=== PATIENT | male | born 1965 | race Caucasian/White ===

== ENCOUNTER → 2022-05-16 | Outpatient (REF) | payer OTHER ==
[2022-05-16 14:00] LABS: LYMPHOCYTES 2 % (16-44); NEUTROPHILS 97 % (28-66)
[2022-05-16 14:01] LABS: PLATELET ESTIMATE NORMAL (NORMAL)
[2022-05-17 23:10] LABS: TESTOSTERONE FREE (DIRECT) 13.6 pg/mL (7.2-24.0)
== END ==
LOC: M LAB REF 13:17
PROVIDERS: ATTEND Internal Medicine
DX: D72.9 Disorder of white blood cells, unspecified (principal); N52.9 Male erectile dysfunction, unspecified; D72.829 Elevated white blood cell count, unspecified

== ENCOUNTER → 2023-08-14 | Outpatient (CLI) | payer OTHER | LOC: M WUC 09:26 | PROVIDERS: ATTEND Internal Medicine | DX: Z00.00 Encounter for general adult medical examination without abnormal findings (principal) ==

== ENCOUNTER 2024-02-26 10:35 | Observation (INO) | payer OTHER ==
[~2024-02-26] VITALS: Ht 177.8 cm; Wt 108.2 kg
[2024-02-26] MEDS ORDERED: LOSA100T46 PO (10:46)
[2024-02-26] MEDS ORDERED: PRAV20TA2 PO (10:46)
[2024-02-26] MEDS ORDERED: PHEN30CA21 PO (10:46)
[2024-02-26] MEDS ORDERED: CHLO125TA PO (10:46)
[2024-02-26] MEDS ORDERED: ISOVUE-370 76% 100ML VIAL As Ordered ONE (12:12)
[2024-02-26] MEDS: KETOROLAC 30 MG/ML 1ML VIAL IV ONE (14:18)
[2024-02-26] MEDS: ONDANSETRON 4MG 2ML VIAL IV ONE (14:18)
[2024-02-26] MEDS: NS 1,000 ML IV ONE (14:18)
[2024-02-26] MEDS ORDERED: HOME MED LIST COMPLETE! XX SCH (15:05)
[2024-02-26] MEDS ORDERED: ACETAMINOPHEN TAB 650MG DOSE (2X325MG) PO PRN (15:35)
[2024-02-26] MEDS ORDERED: ONDANSETRON 4MG 2ML VIAL IV PRN (15:40)
[2024-02-26] MEDS: PANTOPRAZOLE 40MG VIAL IV ONE (16:21)
[2024-02-26 17:15] VITALS: BP 147/85; TEMP 98.1; O2SAT 98
[2024-02-26] MEDS: KCL 40MEQ IN D5/NS 1000ML 1,000 ML IV SCH (18:42)
[2024-02-26 22:08] VITALS: BP 119/81; TEMP 97.9; O2SAT 96
[2024-02-27 05:40] VITALS: BP 127/83; TEMP 97.5; O2SAT 98
[2024-02-27 06:23] LABS: HEMATOCRIT 44.5 % (42.0-52.0); HEMOGLOBIN 15.8 g/dl (13.5-17.5); MEAN CORPUSCULAR HEMOGLOBIN 33.2 pg (27.0-33.0); MEAN CORPUSCULAR HGB CONC 35.5 g/dl (32.0-36.5); MEAN CORPUSCULAR VOLUME 93.5 fl (80.0-96.0); PLATELET COUNT, AUTOMATED 268 10^3/uL (150-450); RED BLOOD COUNT 4.76 10^6/uL (4.30-6.10)
[2024-02-27 06:34] LABS: ALKALINE PHOSPHATASE 67 U/L (46-116); ALT/SGPT 25 U/L (7.0-40); AST/SGOT 21 U/L (<34); BILIRUBIN,TOTAL 0.7 MG/DL (0.3-1.2); BLOOD UREA NITROGEN 14 MG/DL (9-23); CARBON DIOXIDE LEVEL 32 MMOL/L (20-31); CHLORIDE LEVEL 100 MMOL/L (98-107); CREATININE FOR GFR 0.88 MG/DL (0.70-1.30); GLOMERULAR FILTRATION RATE > 60.0 (>49); GLUCOSE, FASTING 103 MG/DL (74-106); POTASSIUM SERUM 3.5 MMOL/L (3.5-5.1); SODIUM LEVEL 138 MMOL/L (136-145); TOTAL PROTEIN 5.9 G/DL (5.7-8.2)
[2024-02-27 09:47] LABS: MAGNESIUM LEVEL 1.9 MG/DL (1.8-2.4)
[2024-02-27] MEDS: POTASSIUM CHLORIDE 10MEQ SR TABLET PO SCH (10:14)
[2024-02-27] MEDS ORDERED: CEFD300CAP PO (12:06)
[2024-02-27] MEDS ORDERED: METR-265 PO (12:06)
[2024-02-27] MEDS ORDERED: POTA10CA60 PO (12:06)
== END 2024-02-27 14:49 | disposition home or self-care (01) ==
LOC: M ED 10:35 → M ED INP 10:36 → M MSPAV 17:15
PROVIDERS: ADMIT Hospitalist; ATTEND Hospitalist
DX: R10.9 Unspecified abdominal pain (principal); R14.0 Abdominal distension (gaseous); R11.2 Nausea with vomiting, unspecified; R19.7 Diarrhea, unspecified; R93.3 Abnormal findings on diagnostic imaging of other parts of digestive tract; K76.0 Fatty (change of) liver, not elsewhere classified; K57.90 Diverticulosis of intestine, part unspecified, without perforation or abscess without bleeding; I10 Essential (primary) hypertension; E78.5 Hyperlipidemia, unspecified; E66.9 Obesity, unspecified; Z79.899 Other long term (current) drug therapy
CPT/HCPCS: 36415; 74018; 74177; 80053; 83605; 83735; 85027; 96374; 96375; 99284; C9113; J1885; J2405; Q9967

== ENCOUNTER → 2024-02-26 | Outpatient (CLI) | payer OTHER ==
[~2024-02-26] MED LIST: CEFD300CAP PO; CHLO125TA PO; LOSA100T46 PO; METR-265 PO; PHEN30CA21 PO; POTA10CA60 PO; PRAV20TA2 PO
[2024-02-26 11:05] LABS: BASO # 0.1 10^3/uL (0.0-0.2); BASO % 0.6 % (0.0-1.0); EOS # 0.1 10^3/uL (0.0-0.5); HEMATOCRIT 50.4 % (42.0-52.0); HEMOGLOBIN 17.7 g/dl (13.5-17.5); LYMPH % 22.7 % (24.0-44.0); MEAN CORPUSCULAR HGB CONC 35.1 g/dl (32.0-36.5); MEAN CORPUSCULAR VOLUME 93.9 fl (80.0-96.0); MONO # 2.1 10^3/uL (0.0-0.8); MONO % 15.6 % (2.0-8.0); NEUTROPHILS # 7.9 10^3/uL (1.5-8.5); NEUTROPHILS % 59.7 % (36.0-66.0); PLATELET COUNT, AUTOMATED 313 10^3/uL (150-450); RED BLOOD COUNT 5.37 10^6/uL (4.30-6.10); WHITE BLOOD COUNT 13.2 10^3/uL (4.0-10.0)
[2024-02-26 11:39] LABS: LIPASE 34 U/L (12-53)
[2024-02-26 11:41] LABS: ALBUMIN 3.6 G/DL (3.2-5.2); ALKALINE PHOSPHATASE 82 U/L (46-116); ALT/SGPT 31 U/L (7.0-40); AMYLASE 83 U/L (30-118); AST/SGOT 21 U/L (<34); BILIRUBIN,TOTAL 0.5 MG/DL (0.3-1.2); BLOOD UREA NITROGEN 21 MG/DL (9-23); CALCIUM LEVEL 9.3 MG/DL (8.3-10.6); CARBON DIOXIDE LEVEL 33 MMOL/L (20-31); CHLORIDE LEVEL 94 MMOL/L (98-107); CREATININE FOR GFR 0.93 MG/DL (0.70-1.30); GLOMERULAR FILTRATION RATE > 60.0 (>49); GLUCOSE, FASTING 92 MG/DL (74-106); POTASSIUM SERUM 3.1 MMOL/L (3.5-5.1); SODIUM LEVEL 135 MMOL/L (136-145); TOTAL PROTEIN 7.1 G/DL (5.7-8.2)
== END ==
LOC: M WUC 08:59
PROVIDERS: ATTEND Physician Assistant
DX: R11.0 Nausea (principal)

== ENCOUNTER 2024-11-24 06:58 | Day surgery (SDC) | payer OTHER ==
[~2024-11-24] VITALS: Ht 177.8 cm; Wt 111.6 kg
[~2024-11-24 06:58] MED LIST changes: +CO Q10CA PO; +MULTTAB61 PO; -POTA10CA60 PO; +POTA10CA70 PO; +PRO1CAP PO; +VITACAP31; +[UNRECOGNIZED DRUG - OTHER]; +propofoL 200 MG/20 ML VIAL As Ordered ONE
[2024-11-24] MEDS ORDERED: propofoL 500 MG/50 ML VIAL As Ordered ONE (07:13)
[2024-11-24 08:00] VITALS: BP 144/85; O2SAT 96
== END 2024-11-24 08:30 | disposition home or self-care (01) ==
LOC: M OPP 06:58
PROVIDERS: ATTEND Internal Medicine Gastroenterology
DX: Z12.11 Encounter for screening for malignant neoplasm of colon (principal); K63.5 Polyp of colon; K64.0 First degree hemorrhoids; K57.30 Diverticulosis of large intestine without perforation or abscess without bleeding; I10 Essential (primary) hypertension; E78.00 Pure hypercholesterolemia, unspecified; M19.90 Unspecified osteoarthritis, unspecified site; Z79.899 Other long term (current) drug therapy

== ENCOUNTER → 2025-03-24 | Outpatient (CLI) | payer OTHER ==
[~2025-03-24] MED LIST changes: +ISOVUE-300 61% 100ML VIAL As Ordered ONE; +LIDOCAINE 1% MDV 20ML VIAL As Ordered ONE; +PROHANCE 279.3MG/ML 5ML VIAL As Ordered ONE; -propofoL 200 MG/20 ML VIAL As Ordered ONE
== END ==
LOC: M RAD 12:21
PROVIDERS: ATTEND Physician Assistant
DX: M19.012 Primary osteoarthritis, left shoulder (principal); S43.432A Superior glenoid labrum lesion of left shoulder, initial encounter; X58.XXXA Exposure to other specified factors, initial encounter; Y92.9 Unspecified place or not applicable
CPT/HCPCS: 23350; 73223; 77002; A9576; Q9967

== ENCOUNTER → 2025-09-04 | Outpatient (REF) | payer OTHER ==
[~2025-09-04] MED LIST changes: -ISOVUE-300 61% 100ML VIAL As Ordered ONE; -LIDOCAINE 1% MDV 20ML VIAL As Ordered ONE; -PRAV20TA2 PO; +PRAV20TA78 PO; -PROHANCE 279.3MG/ML 5ML VIAL As Ordered ONE
== END ==
LOC: M LAB REF 14:18
PROVIDERS: ATTEND Internal Medicine
DX: R63.5 Abnormal weight gain (principal)

== ENCOUNTER → 2025-10-06 | Outpatient (CLI) | payer OTHER | LOC: M RAD 06:32 | PROVIDERS: ATTEND Internal Medicine | DX: R14.0 Abdominal distension (gaseous) (principal) ==